=== PATIENT | female | born 1950 ===

== ENCOUNTER 2016-09-01 14:01 | Emergency (ER) | payer MEDICAID, OTHER ==
[2016-09-01 14:16] VITALS: BP 139/65; PULSE 53; RESP 19; TEMP 98.8; O2SAT 98
--- NOTE | 2016-09-01 15:22 | ED PDOC ---
HPI: General Adult Time Seen by Provider: 09/01/16 15:10 Chief Complaint (Nursing): ENT Problem Chief Complaint (Provider): ENT Problem History Per: Patient History/Exam Limitations: no limitations Onset/Duration Of Symptoms: Days (x1 week) Current Symptoms Are (Timing): Still Present Additional Complaint(s): 65 y/o female with a past medical history of arthritis and hypertension who presents to the emergency department with a complaint of swelling of the neck region x1 week. Associated with a fever and mild cough. Patient states taking a few amoxicillin pills without the relief of pain or infection. Had experienced similar episode in the past. PMD: Dr. Oleskandr Benjamin MD Past Medical History Reviewed: Historical Data, Nursing Documentation, Vital Signs Vital Signs: Last Vital Signs Temp 98.8 F 09/01/16 14:12 Pulse 53 L 09/01/16 14:12 Resp 19 09/01/16 14:12 BP 139/65 09/01/16 14:12 Pulse Ox 98 09/01/16 15:24 - Medical History PMH: Asthma, HTN - Family History Family History: States: Unknown Family Hx - Home Medications Home Medications: Ambulatory Orders Medication Instructions Recorded Diphenhydramine Hydrochlorid 25 mg PO Q8 #20 cap 07/29/14 [Benadryl] Hydrocortisone 1% Cream [Cortizone 1 appl TP BID #1 tube 10/07/14 1% Cream] Losartan [Cozaar] 25 mg PO DAILY 10/07/14 Amoxicillin 1 tab PO Q8 #21 tablet 09/01/16 - Allergies Allergies/Adverse Reactions: Allergies Allergy/AdvReac Type Severity Reaction Status Date / Time Darvon Allergy RASH Uncoded 10/07/14 13:34 Review of Systems ROS Statement: Except As Marked, All Systems Reviewed And Found Negative Constitutional: Positive for: Fever Respiratory: Positive for: Cough (Mild) Musculoskeletal: Positive for: Neck Pain (x1 week, with swelling. Left sided) Physical Exam - Reviewed Nursing Documentation Reviewed: Yes Vital Signs Reviewed: Yes - Physical Exam Appears: Positive for: Non-toxic, No Acute Distress Head Exam: Positive for: ATRAUMATIC, NORMOCEPHALIC Skin: Positive for: Normal Color, Warm, Dry ENT: Positive for: Normal ENT Inspection. Negative for: Pharyngeal Erythema Cardiovascular/Chest: Positive for: Regular Rate, Rhythm. Negative for: Murmur Respiratory: Positive for: Normal Breath Sounds. Negative for: Accessory Muscle Use, Respiratory Distress Lymphatic: Positive for: Adenopathy (Tenderness to palpation of the left-sided cervical region). Negative for: Normal Exam Neurologic/Psych: Positive for: Alert, Oriented - ECG O2 Sat by Pulse Oximetry: 98 (RA) Pulse Ox Interpretation: Normal Medical Decision Making Medical Decision Making: Time: 15:10 Initial impression: Adenopathy Initial plan: --Antibiotics Time: 15:40 Upon provider reevaluation patient is feeling better, is medically stable, and requires no further treatment in the ED at this time. Patient will be discharged home with Rx for Amoxicillin. Counseling was provided and all questions were answered regarding diagnosis and need for follow up with Dr. Oleksandr Benjamin MD . There is agreement to discharge plan. Return if symptoms persist or worsen. Clinical Impression: Lymphadenopathy Scribe Attestation: Documented by Claribel Wesley, acting as a scribe for Fuetnes armijo PA-C. Provider Scribe Attestation: All medical record entries made by the Scribe were at my direction and personally dictated by me. I have reviewed the chart and agree that the record accurately reflects my personal performance of the history, physical exam, medical decision making, and the department course for this patient. I have also personally directed, reviewed, and agree with the discharge instructions and disposition. Disposition - Clinical Impression Clinical Impression: Lymphadenopathy - Patient ED Disposition Is Patient to be Admitted: No Counseled Patient/Family Regarding: Studies Performed, Rx Given - Disposition Referrals: Oleksandr Benjamin MD [Primary Care Provider] - Disposition: Routine/Home Disposition Time: 15:40 Condition: FAIR Prescriptions: Amoxicillin 1 tab PO Q8 #21 tablet Instructions: Lymphadenopathy (ED) Print Language: ZIMBABWEAN
== END 2016-09-01 15:46 | disposition home or self-care (01) ==
LOC: H.ER 14:01
DX: R59.1 Generalized enlarged lymph nodes (principal); I10 Essential (primary) hypertension

== ENCOUNTER 2016-12-09 14:55 | Emergency (ER) | payer OTHER ==
[2016-12-09 15:11] VITALS: BP 146/67; PULSE 49; RESP 17; TEMP 97.2; O2SAT 100
--- NOTE | 2016-12-09 17:15 | CT ---
PROCEDURE: CT HEAD WITHOUT CONTRAST. HISTORY: left ear pain with tinnitus/ABDALLA/loss balance COMPARISON: None available. TECHNIQUE: Axial computed tomography images were obtained through the head/brain without intravenous contrast. Radiation dose: Total exam DLP = 820.85 mGy-cm. This CT exam was performed using one or more of the following dose reduction techniques: Automated exposure control, adjustment of the mA and/or kV according to patient size, and/or use of iterative reconstruction technique. FINDINGS: HEMORRHAGE: No intracranial hemorrhage. BRAIN: No mass effect or edema. No atrophy or chronic microvascular ischemic changes. VENTRICLES: Unremarkable. No hydrocephalus. CALVARIUM: Unremarkable. PARANASAL SINUSES: Mild chronic sphenoid sinusitis. No evidence of acute sinusitis. MASTOID AIR CELLS: Unremarkable as visualized. No inflammatory changes. OTHER FINDINGS: None. IMPRESSION: Mild chronic sphenoid sinusitis. No intracranial mass, hemorrhage or evidence of acute infarct.
[2016-12-09] MEDS ORDERED: Amoxicillin-Clav 500-125 mg Tab PO STA (17:37)
[2016-12-09] MEDS ORDERED: Amoxicillin-Clav 250-125 mg Tab PO ONE (17:41)
[2016-12-09] MEDS ORDERED: Amoxicillin-Clav 250-125 mg Tab PO STA (17:43)
--- NOTE | 2016-12-09 17:46 | ED PDOC ---
HPI: CCC, URI, Sore Throat Time Seen by Provider: 12/09/16 16:15 Chief Complaint (Nursing): ENT Problem Chief Complaint (Provider): ear pain History Per: Patient History/Exam Limitations: no limitations Additional Complaint(s): 66yo F in ED for eval of left ear pain x 14 d without fever, chills, nausea or vomiting. admits to worsening pain radiation to neck with swelling of left sided lymph node swelling and dizziness. Pt also admits to worsening tinnitus. Pt admits to ABDALLA . PT states her dizziness cased her to fall yesterday night. says she has been to her PMD but was told she has tinnitus and eventually is would dissipate Past Medical History Reviewed: Historical Data, Nursing Documentation, Vital Signs Vital Signs: Last Vital Signs Temp 97.2 F L 12/09/16 15:08 Pulse 49 L 12/09/16 15:08 Resp 17 12/09/16 15:08 BP 146/67 12/09/16 15:08 Pulse Ox 100 12/09/16 17:46 - Medical History PMH: Asthma, HTN - Family History Family History: States: Unknown Family Hx - Home Medications Home Medications: Ambulatory Orders Medication Instructions Recorded Diphenhydramine Hydrochlorid 25 mg PO Q8 #20 cap 07/29/14 [Benadryl] Hydrocortisone 1% Cream [Cortizone 1 appl TP BID #1 tube 10/07/14 1% Cream] Losartan [Cozaar] 25 mg PO DAILY 10/07/14 Amoxicillin 1 tab PO Q8 #21 tablet 09/01/16 Amoxicillin/Clavulanate [Augmentin 1 tab PO BID #14 tab 12/09/16 875 MG-125 MG] Amoxicillin/Potassium Clav 1 tab PO BID #14 tab 12/09/16 [Augmentin 500 mg-125 mg] predniSONE [Prednisone] 10 mg PO DAILY #7 tab 12/09/16 - Allergies Allergies/Adverse Reactions: Allergies Allergy/AdvReac Type Severity Reaction Status Date / Time tramadol Allergy RASH Verified 12/09/16 15:08 Darvon Allergy Mild RASH Uncoded 12/09/16 15:07 Curb-65 Severity Score - CURB-65 Severity Score Confusion: No Bun >19mg/dl (>7mmol/L): No Respiratory Rate greater than/equal to 30: No Systolic BP <90 or Diastolic BP less than/equal 60mmHg: No Age >64: No Curb-65 Score: 0 Percentage 30-day mortality: 0.6% Review of Systems ROS Statement: Except As Marked, All Systems Reviewed And Found Negative Constitutional: Negative for: Fever, Chills, Sweats, Weakness Eyes: Negative for: Vision Change ENT: Positive for: Ear Pain, Throat Pain. Negative for: Ear Discharge, Nose Pain, Nose Discharge Respiratory: Negative for: Cough, Shortness of Breath Gastrointestinal: Negative for: Nausea, Vomiting, Abdominal Pain Neurological: Positive for: Headache, Dizziness Physical Exam - Reviewed Nursing Documentation Reviewed: Yes Vital Signs Reviewed: Yes - Physical Exam Appears: Positive for: Non-toxic, No Acute Distress, Uncomfortable Head Exam: Positive for: ATRAUMATIC, NORMAL INSPECTION, NORMOCEPHALIC Skin: Positive for: Normal Color, Warm, DRY Eye Exam: Positive for: EOMI, Normal appearance, PERRL ENT: Positive for: TM Is/Are (left: hemotympanum noted. no draiange no swelling to canal), Sinus Pain/Drainage, Pharyngeal Erythema. Negative for: Tonsillar Exudate, Tonsillar Swelling Neck: Positive for: Normal, Painless ROM Cardiovascular/Chest: Positive for: Regular Rate, Rhythm Respiratory: Positive for: CNT, Normal Breath Sounds Lymphatic: Positive for: Adenopathy (cervical b/l) Neurologic/Psych: Positive for: Alert, Oriented - ECG O2 Sat by Pulse Oximetry: 100 - Progress ED Course And Treament: due to presenting symptoms of worsening tinnitus, ABDALLA, dizziness and ear pain will nee to do cT of head/ear Medical Decision Making Medical Decision Making: ct head: sinusitis Ct: IMPRESSION: 1. Findings are most compatible with acute and/or chronic right mastoiditis. No evidence of coalescent mastoiditis. 2. Aerosolized secretions in the right sphenoid chamber may represent acute sinusitis in the appropriate clinical setting. Pt has no pain on right side, no swelling to pinna of ear and no mastoid tenderness. Pt given augmentin in ED will be d/c on augmentin and meclizine with f.u with pmd. and refereed to ENT /PMNR pt signed up for [facility] to f.u with ear pain. Disposition - Clinical Impression Clinical Impression: Sinusitis - Patient ED Disposition Is Patient to be Admitted: No Counseled Patient/Family Regarding: Studies Performed, Diagnosis, Need For Followup, Rx Given - Disposition Referrals: [facility] [Provider Group] [facility] [Provider Group] [facility] [Outside] Disposition: Routine/Home Disposition Time: 18:06 Condition: STABLE Prescriptions: Amoxicillin/Clavulanate [Augmentin 875 MG-125 MG] 1 tab PO BID #14 tab Amoxicillin/Potassium Clav [Augmentin 500 mg-125 mg] 1 tab PO BID #14 tab predniSONE [Prednisone] 10 mg PO DAILY #7 tab Instructions: Sinusitis (ED), Rhinosinusitis (ED) Forms: [employer] (Bangladeshi) Print Language: ARMENIAN
== END 2016-12-09 18:20 | disposition home or self-care (01) ==
LOC: H.ER 14:55
DX: J32.3 Chronic sphenoidal sinusitis (principal); I10 Essential (primary) hypertension; J45.909 Unspecified asthma, uncomplicated

== ENCOUNTER 2017-10-17 10:04 | Emergency (ER) | payer MEDICARE, OTHER ==
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
[2017-10-17 12:51] VITALS: BP 129/67; PULSE 56; RESP 17; TEMP 97.8
[2017-10-17 13:48] VITALS: O2SAT 98
== END 2017-10-17 12:35 | disposition home or self-care (01) ==
LOC: H.ER 10:04
DX: I10 Essential (primary) hypertension (principal); J45.909 Unspecified asthma, uncomplicated; F41.9 Anxiety disorder, unspecified

== ENCOUNTER 2018-07-05 12:43 | Emergency (ER) | payer MEDICARE, MEDICAID ==
[2018-07-05 13:01] VITALS: BP 161/81; PULSE 57; RESP 18; TEMP 98.3; O2SAT 96
--- NOTE | 2018-07-05 14:04 | ED PDOC ---
HPI: General Adult Time Seen by Provider: 07/05/18 13:11 Chief Complaint (Nursing): ENT Problem Chief Complaint (Provider): Nasal Congestion, Dry Mouth History Per: Patient History/Exam Limitations: no limitations Onset/Duration Of Symptoms: Days (x2 weeks) Current Symptoms Are (Timing): Still Present Additional Complaint(s): 67 year old female with pmhx of htn and hypothyroidism presents to the ED for evaluation of nasal congestion and dry mouth which causes her to feel as if she is choking at night for the past two weeks. Additionally reports developing a painful left sided lymph node on her neck that causes pain with swallowing. Pt states she gets sinus infections annually which always improve with amoxicillin, and all symptoms she has now are consistent with infections she has had in the past. Reports using OTC medications such as Flonase, Afrin, Tylenol, and aloe vera inhalation with only minimal improvements in symptoms. Last night patient also reports a tactile fever. Notes she has chronic left ear pain and ringing, but denies further ear pain, nausea, vomiting, diarrhea, chills, headache, dizziness, and shortness of breath. PMD: Oleksandr Benjamin Past Medical History Reviewed: Historical Data, Nursing Documentation, Vital Signs Vital Signs: Last Vital Signs Temp 98.3 F 07/05/18 12:58 Pulse 57 L 07/05/18 12:58 Resp 18 07/05/18 12:58 BP 161/81 H 07/05/18 12:58 Pulse Ox 96 07/05/18 12:58 - Medical History PMH: Anxiety, Asthma, HTN, Hypothyroidism - Surgical History Other surgeries: right foot surgery - Family History Family History: States: Unknown Family Hx - Social History Current smoker - smoking cessation education provided: No Alcohol: None Drugs: Denies - Home Medications Home Medications: Ambulatory Orders Medication Instructions Recorded Diphenhydramine Hydrochlorid 25 mg PO Q8 #20 cap 07/29/14 [Benadryl] RX: Hydrocortisone 1% Cream 1 appl TP BID #1 tube 10/07/14 [Cortizone 1% Cream] RX: Losartan [Cozaar] 25 mg PO DAILY 10/07/14 RX: Amoxicillin 1 tab PO Q8 #21 tablet 09/01/16 Amoxicillin/Clavulanate [Augmentin 1 tab PO BID #14 tab 12/09/16 875 MG-125 MG] Amoxicillin/Potassium Clav 1 tab PO BID #14 tab 12/09/16 [Augmentin 500 mg-125 mg] predniSONE [Prednisone] 10 mg PO DAILY #7 tab 12/09/16 Amoxicillin/Clavulanate [Augmentin 1 tab PO BID 7 Days tab 07/05/18 875 MG-125 MG] Dry Mouth Mouthwash [Biotene Dry 15 ml MM Q2H PRN 7 Days bottle 07/05/18 Mouth Mouthwash] - Allergies Allergies/Adverse Reactions: Allergies Allergy/AdvReac Type Severity Reaction Status Date / Time tramadol Allergy RASH Verified 10/17/17 10:35 Darvon Allergy Mild RASH Uncoded 12/09/16 15:07 Review of Systems ROS Statement: Except As Marked, All Systems Reviewed And Found Negative Constitutional: Positive for: Fever (tactile). Negative for: Chills ENT: Positive for: Ear Pain (chronic left ear pain and ringing), Nose Congestion, Throat Pain (with swallowing), Other (dry mouth) Respiratory: Negative for: Shortness of Breath Gastrointestinal: Negative for: Nausea, Vomiting, Diarrhea Skin: Positive for: Other (left sided painful lymph node) Neurological: Negative for: Headache, Dizziness Physical Exam - Reviewed Nursing Documentation Reviewed: Yes Vital Signs Reviewed: Yes - Physical Exam Appears: Positive for: Uncomfortable Head Exam: Positive for: ATRAUMATIC, NORMAL INSPECTION, NORMOCEPHALIC Eye Exam: Positive for: Normal appearance, EOMI, PERRL ENT: Positive for: Normal ENT Inspection Cardiovascular/Chest: Positive for: Regular Rate, Rhythm Respiratory: Positive for: Normal Breath Sounds. Negative for: Respiratory Distress Lymphatic: Positive for: Other (palpable lymphnode to left lateral neck which is tender to palpation) Neurologic/Psych: Positive for: Alert, Oriented (x3) - ECG O2 Sat by Pulse Oximetry: 96 (RA) Pulse Ox Interpretation: Normal Medical Decision Making Medical Decision Making: Time: 1338 Initial Impression: nasal congestion with dry mouth, probable sinusitis, r/o strep Initial Plan: --Throat culture --Rapid strep 1415 Rapid strep negative. 1430 Patient informed of results and all questions answered. Will be given Augmentin and mouth wash scripts. Advised to follow up with ENT referral provided and ED return parameters discussed. Stable for d/c. Scribe Attestation: Documented by Maryann Sandoval, acting as a scribe for Sherry Phillip PA-C. Provider Scribe Attestation: All medical record entries made by the Scribe were at my direction and personally dictated by me. I have reviewed the chart and agree that the record accurately reflects my personal performance of the history, physical exam, medical decision making, and the department course for this patient. I have also personally directed, reviewed, and agree with the discharge instructions and disposition. Disposition - Clinical Impression Clinical Impression: Acute sinusitis - Patient ED Disposition Is Patient to be Admitted: No Counseled Patient/Family Regarding: Studies Performed, Diagnosis, Need For Followup - Disposition Referrals: Stoney Neal MD [Staff Provider] - Disposition Time: 14:35 Condition: STABLE Additional Instructions: F/u with ENT specialist Dr. Neal for further evaluation of chronic sinusitis and ear ringing. Return to ER if you develop trouble breathing. Prescriptions: Amoxicillin/Clavulanate [Augmentin 875 MG-125 MG] 1 tab PO BID 7 Days tab Dry Mouth Mouthwash [Biotene Dry Mouth Mouthwash] 15 ml MM Q2H PRN 7 Days bottle PRN Reason: Dry Mouth Instructions: Sinusitis, Adult (DC) Forms: [employer] (Kazakh) Print Language: FRENCH
== END 2018-07-05 15:15 | disposition home or self-care (01) ==
LOC: H.ER 12:43
DX: J01.90 Acute sinusitis, unspecified (principal); J45.909 Unspecified asthma, uncomplicated; E03.9 Hypothyroidism, unspecified; I10 Essential (primary) hypertension